=== PATIENT | male | born 1970 | race Caucasian/White ===

== ENCOUNTER 2018-03-26 20:56 | Inpatient (IN) ==
[2018-03-26] MEDS ORDERED: Sod Chloride 0.9% Inj 1,000 ML IV.SIG ONE (21:31)
[2018-03-26] MEDS ORDERED: Ketorolac Inj 30 MG/ML (IVP) Vial IV.PUSH ONE (21:31)
--- NOTE | 2018-03-26 21:40 | ED ---
HPI General Chief complaint: Nausea/Vomiting/Diarrhea Stated complaint: Medical Time Seen by Provider: 03/26/18 21:22 History of Present Illness HPI narrative: This is a 47-year-old male who presents to the emergency department having had abrupt onset abdominal pain, worse in the right lower quadrant, constant, sharp, associated with nausea, 3-4 episodes of vomiting and 3-4 episodes of watery diarrhea. He denies any blood in his stool. He has been very sweaty and had this change his shirt twice ever since this started. He ate some peanuts at 5 PM from a convenient store. Otherwise earlier today he ate some burgers that were reheated but he ate those last night as well. He denies any recent travel or recent sick contacts. He denies any recent antibiotic use. He has a history of a cholecystectomy. Related Data Home Medications Medication Instructions Recorded Confirmed No Known Home Medications 03/26/18 03/26/18 Allergies Allergy/AdvReac Type Severity Reaction Status Date / Time No Known Allergies Allergy Unverified 03/26/18 20:58 Review of Systems Except as stated in HPI: all other systems reviewed are negative [facility] Surgical History Surgical History History of cholecystectomy (Acute) Social History Social History Recent Travel in [facility] within the Last 8 Weeks: No Recent Out of Country Travel within the Last 8 Weeks: No Exam Narrative Exam Narrative: GENERAL: Diaphoretic, uncomfortable appearing SKIN: Focused skin assessment warm and dry. HEAD: Atraumatic. Normocephalic. EYES: Pupils equal and round. No injection or drainage. ENT: Moist mucous membranes NECK: Trachea midline. CARDIOVASCULAR: Regular rate and rhythm. No murmur appreciated. RESPIRATORY: Clear to auscultation. Breath sounds equal bilaterally. GASTROINTESTINAL: Abdomen soft, tender to palpation in the right lower quadrant with no rebound or guarding. MUSCULOSKELETAL: No obvious deformities. NEUROLOGICAL: Awake and alert. No obvious cranial nerve deficits. Moving all extremities. PSYCHIATRIC: Appropriate mood and affect; insight and judgment normal. Course Initial Documented Vital Signs Temperature 97.9 F 03/26/18 20:58 Pulse Rate 84 03/26/18 20:58 Respiratory Rate 22 03/26/18 20:58 Blood Pressure 102/68 03/26/18 20:58 Pulse Oximetry 99 03/26/18 20:58 Last Documented Vital Signs Temperature 97.9 F 03/26/18 20:58 Pulse Rate 77 03/27/18 00:20 Respiratory Rate 18 03/27/18 00:20 Blood Pressure 128/65 03/27/18 00:20 Pulse Oximetry 97 03/27/18 00:20 Medical Decision Making MDM Narrative Medical decision making narrative: This is a 47-year-old male who presents to the emergency department with abrupt onset vomiting abdominal pain and diarrhea. He was diaphoretic and ill-appearing upon arrival. Labs demonstrate acute kidney injury and a leukocytosis. Cultures were obtained and he was started on Cipro and Flagyl. CT abdomen pelvis was obtained which was reassuring. I suspect the patient has food poisoning. He will be admitted for IV hydration. Differential Diagnosis Differential Diagnosis: Gastroenteritis, appendicitis, colitis, dehydration, electrolyte abnormality Lab Data Lab results reviewed: Yes I reviewed the patient's lab results. Result diagrams: 03/26/18 21:49 03/26/18 21:49 Lab Results 03/26/18 03/26/18 03/26/18 Range/Units 21:49 21:49 21:49 WBC 21.4 H (4.0-11.0) th/mm3 RBC 7.12 H (4.50-5.90) mil/mm3 Hgb 15.3 (13.0-17.0) gm/dL Hct 47.3 (39.0-51.0) % MCV 66.5 L (80.0-100.0) fL MCH 21.6 L (27.0-34.0) pg MCHC 32.4 (32.0-36.0) % RDW 16.1 (11.6-17.2) % Plt Count 306 (150-450) th/mm3 MPV 7.6 (7.0-11.0) fL Neut % (Auto) 89.8 H (16.0-70.0) % Lymph % (Auto) 5.7 L (9.0-44.0) % Mcleod % (Auto) 3.9 (0.0-8.0) % Eos % (Auto) 0.6 (0.0-4.0) % Baso % (Auto) 0.0 (0.0-2.0) % Neut # (Auto) 19.2 H (1.8-7.7) th/mm3 Lymph # (Auto) 1.2 (1.0-4.8) th/mm3 Mcleod # (Auto) 0.8 (0.0-0.9) th/mm3 Eos # (Auto) 0.1 (0.0-0.4) th/mm3 Baso # (Auto) 0.0 (0.0-0.2) th/mm3 WBC Differential . Differential Comment Auto diff final Sodium 136 (136-145) meq/L Potassium 3.7 (3.5-5.1) meq/L Chloride 103 (98-107) meq/L Carbon Dioxide 24.8 (21.0-32.0) meq/L Anion Gap 8 (5-15) meq/L BUN 31 H (7-18) mg/dL Creatinine 2.09 H (0.60-1.30) mg/dL Estimated GFR 34 L (>89) mL/min Random Glucose 168 H (74-106) mg/dL Lactic Acid 1.4 (0.4-2.0) mmol/L Calcium 10.2 H (8.5-10.1) mg/dL Total Bilirubin 0.6 (0.2-1.0) mg/dL AST 32 (15-37) U/L ALT 55 (12-78) U/L Alkaline Phosphatase 79 (45-117) U/L Total Protein 9.2 H (6.4-8.2) g/dL Albumin 5.2 H (3.4-5.0) g/dL Lipase 171 (73-393) U/L Imaging Data Attestation: I personally reviewed and interpreted this imaging study as follows : Radiologist's impression: Abdomen/Pelvis CT 03/26/18 21:31 CONCLUSION: No acute findings in the abdomen and pelvis. Discharge Plan Discharge Disposition Patient Disposition: 30 Still Patient Discharge Condition Condition: Stable Discharge Details Diagnosis: Acute kidney injury Physicians Team ED Provider: Lisa Baez Primary Care Provider: UNKNOWN, Attending Provider: Gisel Tan Discharge Interventions Interventions: Vital Signs Last Done: 03/27/18 00:20 Status ED Status: Admitted Patient
[2018-03-26 22:24] LABS: Eos # (Auto) 0.1 th/mm3 (0.0-0.4); Eos % (Auto) 0.6 % (0.0-4.0); Hematocrit 47.3 % (39.0-51.0); Hemoglobin 15.3 gm/dL (13.0-17.0); Lymph # (Auto) 1.2 th/mm3 (1.0-4.8); Lymph % (Auto) 5.7 % (9.0-44.0); Mean Corpuscular HGB Conc 32.4 % (32.0-36.0); Mean Corpuscular Hemoglobin 21.6 pg (27.0-34.0); Mean Corpuscular Volume 66.5 fL (80.0-100.0); Mean Platelet Volume 7.6 fL (7.0-11.0); Mono # (Auto) 0.8 th/mm3 (0.0-0.9); Mono % (Auto) 3.9 % (0.0-8.0); Neut # (Auto) 19.2 th/mm3 (1.8-7.7); Neut % (Auto) 89.8 % (16.0-70.0); Platelet Count 306 th/mm3 (150-450); Red Blood Count 7.12 mil/mm3 (4.50-5.90); Red Cell Distribution Width 16.1 % (11.6-17.2); White Blood Count 21.4 th/mm3 (4.0-11.0)
[2018-03-26 22:47] LABS: Alkaline Phosphatase 79 U/L (45-117); Total Protein 9.2 g/dL (6.4-8.2)
[2018-03-26 22:48] LABS: Alanine Aminotransferase 55 U/L (12-78); Albumin 5.2 g/dL (3.4-5.0); Anion Gap 8 meq/L (5-15); Aspartate Aminotransferase 32 U/L (15-37); Blood Urea Nitrogen 31 mg/dL (7-18); Calcium 10.2 mg/dL (8.5-10.1); Carbon Dioxide 24.8 meq/L (21.0-32.0); Chloride 103 meq/L (98-107); Glomerular Filtration Rate 34 mL/min (>89); Glucose,Random 168 mg/dL (74-106); Lipase 171 U/L (73-393); Potassium 3.7 meq/L (3.5-5.1); Sodium 136 meq/L (136-145)
[2018-03-26] MEDS ORDERED: Ciprofloxacin 400 MG/200 ML 400 MG/200 ML PIGGYBACK IV.SIG ONE (23:12)
--- NOTE | 2018-03-26 23:31 | CT ---
EXAM DATE: 03/26/2018 11:13 PM EDT AGE/SEX: 47 years / Male INDICATIONS: Bilateral lower quadrant pain. CLINICAL DATA: This is the patient's initial encounter. Patient reports that signs and symptoms have been present for 1 day and indicates a pain score of 6/10. MEDICAL/SURGICAL HISTORY: None. Cholecystectomy. RADIATION DOSE: 7.43 CTDI (mGy) COMPARISON: No prior exams available for comparison. TECHNIQUE: Multiple contiguous axial images were obtained through the abdomen. Images were obtained using multiple row detector helical technique. Using automated exposure control and adjustment of the mA and/or kV according to patient size, radiation dose was kept as low as reasonably achievable to o btain optimal diagnostic quality images. DICOM format image data is available electronically for rev iew and comparison. FINDINGS: Lower Lungs: The visualized lower lungs are clear. Liver: The liver has a homogeneous density without space-occupying lesion. There is no dilation of th e biliary tree. Cholecystectomy clips seen in the gallbladder fossa. Spleen: Homogeneous density without enlargement. Pancreas: Unremarkable without mass or calcification. Kidneys: 9 mm hypodense exophytic mass extending off of the posterior upper pole of the right kidney likely representing a cyst. No calculi or hydronephrosis identified. Adrenal Glands: Unremarkable. Aorta: The aorta and proximal iliac vessels are grossly unremarkable without aneurysmal dilation. Bowel/Mesentery: No evidence of bowel dilatation. No free air or free fluid. Appendix within normal limits. Abdominal Wall: Intact. Retroperitoneum: No evidence of adenopathy in the retrocrural, para-aortic, or deep pelvic regions. Bladder: Collapsed. Reproductive Organs: No abnormal masses or calcifications seen. Inguinal: The inguinal region is unremarkable without evidence of adenopathy. Bony Structures: Degenerative findings of the lower lumbar spine. CONCLUSION: No acute findings in the abdomen and pelvis. Electronically signed by: Joel Langley MD 03/26/2018 11:30 PM EDT
[2018-03-27] MEDS ORDERED: Morphine Inj 4 MG/ML Vial IV.PUSH PRN (00:39)
[2018-03-27] MEDS ORDERED: Bisacodyl 10 MG Supp RECTAL PRN (00:39)
[2018-03-27] MEDS ORDERED: Temazepam 15 MG Capsule PO PRN (00:39)
[2018-03-27] MEDS ORDERED: Acetaminophen 325 MG Tablet PO PRN (00:39)
[2018-03-27] MEDS ORDERED: Sod Chloride 0.9% Inj 1,000 ML IV.CONT SCH (00:45)
--- NOTE | 2018-03-27 02:44 | P.HPIM ---
History of Present Illness Primary Care Physician: UNKNOWN History of Present Illness: This is a 47-year-old male with no significant PMH who presented to ER with complaints of acute onset of abdominal pain, nausea and vomiting starting earlier today. States he was driving over from [place] with his son, they stopped at a gas station and patient ate a bag of peanuts, few hours later developed intense abdominal pain w/ multiple episodes of nausea/vomiting. Upon arrival to ER was diaphoretic. BP 102/60, HR 84, O2 sat 99% on RA, Afebrile. WBC 21.4. Creatinine 2.09. Calcium 10.2. Lactic Acid normal. CT Abdomen/ Pelvis with no acute findings. S/p Cipro/Flagyl in ER. Pt notes he had previous lab work by PCP, pulled up records on his phone, Creatinine 0.7 on . - Diagnosis (1) Gastroenteritis (2) KINGSLEY (acute kidney injury) (3) Intractable nausea and vomiting Inpatient Certification: I certify that the inpatient services were ordered in accordance with Medicare regulations governing the order. This includes certification that hospital inpatient services are reasonable and necessary and in the case of services not specified as inpatient-only under 42 CFR 419.22(n), that they are appropriately provided as inpatient services in accordance to with the 2-midnight benchmark under 43 CFR 412.3(e) Estimated Total Length of Stay (Days): 2 Plans for Post Hospital Care: Not yet determined Review of Systems All other systems reviewed negative except as stated in HPI [facility] - History History Provided By: Patient - Surgical History Surgical History: Surgical History (Last Updated 03/26/18 @ 21:39 by Lisa Baez MD) History of cholecystectomy - Travel History Recent Travel in the [place] Within the Last 8 Weeks: No Recent Travel Out of the Country Within the Last 8 Weeks: No Medications and Allergies Active Medications: Active Medications Acetaminophen (Tylenol) 650 mg PO Q4H PRN PRN Reason: Temp > 100.4 Al Hydroxide/Mg Hydroxide (Milk Of Magnesia Liq) 30 ml PO Q12H PRN PRN Reason: Mild Constipation Bisacodyl (Dulcolax Supp) 10 mg RECTAL DAILY PRN PRN Reason: SEVERE CONSITIPATION Ciprofloxacin/Dextrose (Cipro 400 Mg/200 Ml Inj) 400 mg in 200 mls @ 200 mls/ hr IV.SIG Q12H CHARY Metronidazole/Sodium Chloride (Flagyl 500 Mg Inj) 100 mls @ 100 mls/hr IV.SIG Q8H CHARY Sodium Chloride (Ns Inj) 1,000 mls @ 100 mls/hr IV.CONT .Q10H CHARY Last Admin: 03/27/18 00:55 Dose: 100 mls/hr Lactulose (Lactulose Liq) 30 ml PO DAILY PRN PRN Reason: SEVERE CONSITIPATION Morphine Sulfate (Morphine Inj) 2 mg IV.PUSH Q4H PRN PRN Reason: PAIN 6-10 Ondansetron HCl (Zofran Odt) 4 mg PO Q6H PRN PRN Reason: NAUSEA OR VOMITING Last Admin: 03/27/18 00:55 Dose: 4 mg Prochlorperazine Edisylate (Compazine Inj) 10 mg IV.PUSH Q6H PRN PRN Reason: NAUSEA/VOMITING Senna/Docusate Sodium (Charu-Colace) 1 tab PO BID CHARY Sennosides (Senokot) 17.2 mg PO Q12H PRN PRN Reason: Moderate Constipation Sodium Chloride (Ns Flush) 2 ml IV.FLUSH PRN PRN PRN Reason: FLUSH AFTER USING IV ACCESS Temazepam (Restoril) 15 mg PO HS PRN PRN Reason: INSOMNIA Allergies Allergy/AdvReac Type Severity Reaction Status Date / Time No Known Allergies Allergy Unverified 03/26/18 20:58 Home Medications Medication Instructions Recorded Confirmed Type No Known Home Medications 03/26/18 03/26/18 History Exam Vital signs: Vital Signs 03/26/18 20:58 03/27/18 00:20 Temperature 97.9 F Pulse Rate 84 77 Respiratory Rate 22 18 Blood Pressure 102/68 128/65 Pulse Oximetry 99 97 Intake & Output 03/26/18 03/26/18 03/27/18 06:59 18:59 06:59 Intake Total 1100 / 1100 Balance 1100 / 1100 Weight 79.379 kg Intake: IV 1100 / 1100 NS Inj 1,000 ML @ Wide Open IV. 1000 / 1000 SIG BOLUS ONE Rx#:[id number] Flagyl 500 MG Inj 100 ML @ 100 100 / 100 mls/hr IV.SIG ONCE ONE Rx#: [id number] Narrative: PE: GENERAL: Pleasant middle-aged white male in no acute distress. HEENT: PERRLA, EOMI. No scleral icterus or conjunctival pallor. No lid lag or facial droop. CARDIOVASCULAR: Regular rate and rhythm. No obvious murmurs to auscultation. No chest tenderness to palpation. RESPIRATORY: No obvious rhonchi or wheezing. Clear to auscultation. Breath sounds equal bilaterally. GASTROINTESTINAL: Abdomen soft, mild epigastric tenderness palpation, nondistended. BS normal. MUSCULOSKELETAL: Extremities without clubbing, cyanosis, or edema. No obvious deformities. NEUROLOGICAL: Awake, alert and oriented x4. No focal neurologic deficits. Moving both upper and lower extremities spontaneously. Results - Labs CBC & Chem 7: 03/26/18 21:49 03/26/18 21:49 Labs: Short CBC 03/26/18 Range/Units 21:49 WBC 21.4 H (4.0-11.0) th/mm3 Hgb 15.3 (13.0-17.0) gm/dL Hct 47.3 (39.0-51.0) % Plt Count 306 (150-450) th/mm3 BMP 03/26/18 21:49 Sodium 136 Potassium 3.7 Chloride 103 Carbon Dioxide 24.8 BUN 31 H Creatinine 2.09 H Calcium 10.2 H Liver Function 03/26/18 Range/Units 21:49 Total Bilirubin 0.6 (0.2-1.0) mg/dL AST 32 (15-37) U/L ALT 55 (12-78) U/L Alkaline Phosphatase 79 (45-117) U/L Albumin 5.2 H (3.4-5.0) g/dL - Imaging Impressions Abdomen/Pelvis CT 03/26/18 21:31 CONCLUSION: No acute findings in the abdomen and pelvis. Caprini VTE Risk Assessment Caprini VTE Risk Assessment: No/Low Risk (score <= 1) Caprini Risk Assessment Model: Point Value = 1 Point Value = 2 Point Value = 3 Point Value = 5 Age 41-60 Minor surgery BMI > 25 kg/m2 Swollen legs Varicose veins or History of unexplained or recurrent spontaneous Oral contraceptives or hormone replacement Sepsis (< 1 month) Serious lung disease, including pneumonia (< 1 month) Abnormal pulmonary function Acute myocardial infarction Congestive heart failure (< 1 month) History of inflammatory bowel disease Medical patient at bed rest Age 61-74 Arthroscopic surgery Major open surgery (> 45 min) Laparoscopic surgery (> 45 min) Malignancy Confined to bed (> 72 hours) Immobilizing plaster cast Central venous access Age >= 75 History of VTE Family history of VTE Factor V Leiden Prothrombin [id number] Lupus anticoagulant Anticardiolipin antibodies Elevated serum homocysteine Heparin-induced thrombocytopenia Other congenital or acquired thrombophilia Stroke (< 1 month) Elective arthroplasty Hip, pelvis, or leg fracture Acute spinal cord injury (< 1 month) Prophylaxis Regimen: Total Risk Factor Score Risk Level Prophylaxis Regimen 0-1 Low Early ambulation 2 Moderate Order ONE of the following: *Sequential Compression Device (SCD) *Heparin 5000 units SQ BID 3-4 Higher Order ONE of the following medications: *Heparin 5000 units SQ TID *Enoxaparin/Lovenox 40 mg SQ daily (WT < 150 kg, CrCl > 30 mL/min) *Enoxaparin/Lovenox 30 mg SQ daily (WT < 150 kg, CrCl > 10-29 mL/min) *Enoxaparin/Lovenox 30 mg SQ BID (WT < 150 kg, CrCl > 30 mL/min) AND/OR *Sequential Compression Device (SCD) 5 or more Highest Order ONE of the following medications: *Heparin 5000 units SQ TID (Preferred with Epidurals) *Enoxaparin/Lovenox 40 mg SQ daily (WT < 150 kg, CrCl > 30 mL/min) *Enoxaparin/Lovenox 30 mg SQ daily (WT < 150 kg, CrCl > 10-29 mL/min) *Enoxaparin/Lovenox 30 mg SQ BID (WT < 150 kg, CrCl > 30 mL/min) AND *Sequential Compression Device (SCD) Assessment and Plan - Assessment (1) Gastroenteritis Code(s): K52.9 - Noninfective gastroenteritis and colitis, unspecified Status : Acute (2) KINGSLEY (acute kidney injury) Code(s): N17.9 - Acute kidney failure, unspecified Status: Acute (3) Intractable nausea and vomiting Code(s): R11.2 - Nausea with vomiting, unspecified Status: Acute - Plan A/P: 1. Gastroenteritis: acute onset abdominal pain, nausea/vomiting and diarrhea after ingesting peanuts, CT Abd/Pelvis w/ no acute findings, images reviewed. WBC 21, likely reactive, however will continue w/ IV Cipro/Flagyl for empiric treatment. 2. KINGSLEY: Creatinine 2.09, previously 0.7 on 02/11/17 per patients records. IVF for hydration, monitor I/O, repeat labs in am. 3. Intractable NV: secondary to above, s/p Zofran ODT w/ minimal improvement, Compazine prn, Phenergan if needed. 4. DVT Prophylaxis: SCD/Teds 5. Social work for d/c planning as needed. 6. Case discussed w/ ER physician at length, labs/records/imaging reviewed by me.
[2018-03-27] MEDS ORDERED: Senna/Docusate Sodium 8.6/50 MG Tablet PO SCH (09:00)
[2018-03-27] MEDS ORDERED: Ciprofloxacin 400 MG/200 ML 400 MG/200 ML PIGGYBACK IV.SIG SCH (09:00)
[2018-03-27 09:39] VITALS: RESP 20; O2SAT 99
--- NOTE | 2018-03-27 10:37 | P.PNIM ---
Subjective Interval history: Patient reports he is feeling great, tolerating a diet. No nausea or vomiting. No fevers or chills. He feels back to normal. Physical Exam Vital signs: Vital Signs 03/26/18 20:58 03/27/18 00:20 03/27/18 04:31 Temperature 97.9 F 98.3 F Pulse Rate 84 77 77 Respiratory Rate 22 18 18 Blood Pressure 102/68 128/65 108/65 Pulse Oximetry 99 97 97 03/27/18 08:00 Temperature 97.4 F L Pulse Rate 74 Respiratory Rate 20 Blood Pressure 118/59 L Pulse Oximetry 99 Intake & Output 03/26/18 03/27/18 03/27/18 18:59 06:59 18:59 Intake Total 1580 / 1580 Balance 1580 / 1580 Weight 79.3 kg Intake: IV 1100 / 1100 NS Inj 1,000 ML @ Wide Open IV. 1000 / 1000 SIG BOLUS ONE Rx#:[id number] Flagyl 500 MG Inj 100 ML @ 100 100 / 100 mls/hr IV.SIG ONCE ONE Rx#: [id number] Oral 480 / 480 Other: # Voids 0 Date of Last Bowel Movement 03/26/18 # Bowel Movements 0 Weight On Admission 79.379 kg Narrative: GENERAL: This is a well-nourished, well-developed patient, in no apparent distress. CARDIOVASCULAR: Normal rate and regular rhythm without murmurs, gallops, or rubs. RESPIRATORY: Good respiratory efforts. Breath sounds equal and clear to auscultation bilaterally. GASTROINTESTINAL: Abdomen soft, non-tender, non-distended. Normal active bowel sounds MUSCULOSKELETAL: Extremities without cyanosis, or edema. NEURO: Alert & Oriented x4 to person, place, time, situation. Moves all ext x4 PSYCH: Appropriate mood and affect. Results - Labs CBC & Chem 7: 03/26/18 21:49 03/26/18 21:49 Laboratory Results - last 24 hr 03/26/18 03/26/18 03/26/18 21:49 21:49 21:49 WBC 21.4 H RBC 7.12 H Hgb 15.3 Hct 47.3 MCV 66.5 L MCH 21.6 L MCHC 32.4 RDW 16.1 Plt Count 306 MPV 7.6 Neut % (Auto) 89.8 H Lymph % (Auto) 5.7 L Evans % (Auto) 3.9 Eos % (Auto) 0.6 Baso % (Auto) 0.0 Neut # (Auto) 19.2 H Lymph # (Auto) 1.2 Evans # (Auto) 0.8 Eos # (Auto) 0.1 Baso # (Auto) 0.0 WBC Differential . Differential Comment Auto diff final Sodium 136 Potassium 3.7 Chloride 103 Carbon Dioxide 24.8 Anion Gap 8 BUN 31 H Creatinine 2.09 H Estimated GFR 34 L Random Glucose 168 H Lactic Acid 1.4 Calcium 10.2 H Total Bilirubin 0.6 AST 32 ALT 55 Alkaline Phosphatase 79 Total Protein 9.2 H Albumin 5.2 H Lipase 171 - Imaging Impressions Abdomen/Pelvis CT 03/26/18 21:31 CONCLUSION: No acute findings in the abdomen and pelvis. Assessment and Plan - Assessment (1) Gastroenteritis Code(s): K52.9 - Noninfective gastroenteritis and colitis, unspecified Status : Acute (2) KINGSLEY (acute kidney injury) Code(s): N17.9 - Acute kidney failure, unspecified Status: Acute (3) Intractable nausea and vomiting Code(s): R11.2 - Nausea with vomiting, unspecified Status: Acute - Plan 47-year-old male admitted with gastroenteritis, acute kidney injury. The patient improved rapidly with IV fluid, antibiotics and is back to baseline. Suspect gastroenteritis is viral in nature. -Follow-up BMP to ensure her renal functions recovering. Discontinue antibiotics. -If renal function improved, will plan to discharge home. Discharge patient to home Condition on discharge: Improved Regular Diet as tolerated Ad Jada activity Rx written: None Follow-up with primary care physician
[2018-03-27 11:21] LABS: Hematocrit 36.2 % (39.0-51.0); Hemoglobin 11.4 gm/dL (13.0-17.0); Mean Corpuscular HGB Conc 31.6 % (32.0-36.0); Mean Corpuscular Hemoglobin 20.9 pg (27.0-34.0); Mean Corpuscular Volume 66.1 fL (80.0-100.0); Mean Platelet Volume 7.4 fL (7.0-11.0); Platelet Count 213 th/mm3 (150-450); Red Blood Count 5.47 mil/mm3 (4.50-5.90); Red Cell Distribution Width 15.7 % (11.6-17.2); White Blood Count 6.6 th/mm3 (4.0-11.0)
[2018-03-27 11:52] LABS: Calcium 8.2 mg/dL (8.5-10.1); Carbon Dioxide 27.3 meq/L (21.0-32.0); Potassium 3.6 meq/L (3.5-5.1)
[2018-03-27 15:21] VITALS: BP 121/72; PULSE 78; TEMP 97.9
== END 2018-03-27 13:43 | disposition home or self-care (01) ==
LOC: NEPD 20:56 → NEDA 03-27 00:23 → N06 03-27 02:31
PROVIDERS: ADMIT Family Medicine; ATTEND Family Medicine
DX: N17.9 Acute kidney failure, unspecified; Z90.49 Acquired absence of other specified parts of digestive tract; K52.9 Noninfective gastroenteritis and colitis, unspecified